=== PATIENT | female | born 1925 | race Caucasian/White ===

== ENCOUNTER 2017-04-03 20:24 | Inpatient (IN) | payer MEDICARE ==
[2017-04-03] MEDS ORDERED: Midazolam HCl 2 mg/2 ml Vial ONE (20:42)
[2017-04-03] MEDS ORDERED: Nitroglycerin 0.4 MG TAB (25 Tab Bottle) ONE (20:46)
[2017-04-03] MEDS ORDERED: Nitroglycerin 2% Ointment 1 INCH/1 GM Packet ONE (20:46)
[2017-04-03] MEDS ORDERED: Furosemide 40 MG/4 ML VIAL ONE (20:53)
[2017-04-03 20:54] LABS: Oxyhemoglobin 93.1 % (94.0-97.0); Sodium 136 mmol/L (135-148)
[2017-04-03 20:56] LABS: Mode BIPAP; Modified Allen's Test POSITIVE; Pressure Support 15 cmH2O; Vent NO
[2017-04-03 20:57] LABS: Digoxin Less than 0.15 ng/mL (0.8-2.0)
[2017-04-03 20:58] LABS: Bilirubin Negative (Negative); Blood, Urine Negative (Negative); Glucose, Urine (Dipstick) Negative (Negative); Ketone, Urine Negative (Negative); Nitrite Negative (Negative); Protein, Urine (Dipstick) 30 mg/dL (Neg-Trace)
[2017-04-03] MEDS ORDERED: Acetaminophen 650 MG Suppository ONE (20:58)
--- NOTE | 2017-04-03 20:58 | RAD ---
PORTABLE CHEST ONE VIEW: 04/03/17 at 8:01 p.m. HISTORY: Dyspnea and chest pain. FINDINGS: Comparison is made with exam of 03/09/17. The heart size is borderline. There is pulmonary vascular congestion. No lobar consolidation, pneumo thorax or large effusion is seen. Small effusions may be present. IMPRESSION: Mild CHF. POS: [facility]
[2017-04-03 21:00] LABS: Bacteria/HPF None Seen HPF (None Seen); Hyaline Casts/LPF 0-3 HYALINE CAST LPF (0-3 Hyaline); RBC/HPF 0-3 HPF (0-3); Squamous Epithelial 0-3 HPF (0-3); WBC/HPF None Seen HPF (0-3)
[2017-04-03 21:01] LABS: ALT (SGPT) 13 U/L (8-55); AST (SGOT) 31 U/L (5-34); Alkaline Phosphatase 118 U/L (40-150); Anion Gap 22 mmol/L (10-20); BUN (Urea Nitrogen) 20 mg/dL (9.8-20.1); CK (CPK) 65 U/L (29-168); Calc. Creatinine Clearance 0 mL/min (70-130); Calcium 9.3 mg/dL (7.8-10.44); Carbon Dioxide 14 mmol/L (23-31); Chloride 105 mmol/L (98-107); Estimated GFR-MDRD 39; Globulin 3.2 g/dL (2.4-3.5); Lipase 76 U/L (8-78); Protein, Total 7.7 g/dL (6.0-8.3)
[2017-04-03 21:02] LABS: Troponin I 0.012 ng/mL (< 0.028)
[2017-04-03 21:11] LABS: Renal Epithelial 0-3 HPF (0-3)
[2017-04-03 21:15] LABS: Band 1 % (5-11); Hematocrit 41.6 % (36.0-47.0); Mean Platelet Volume 6.9 fL (7.4-10.4); Neutrophil 49 % (42-75); Red Blood Cell (RBC) Count 3.77 mill/uL (4.20-5.40); White Blood Cell (WBC) Count 22.3 thou/uL (4.8-10.8)
[2017-04-03 21:24] LABS: Lactic Acid - Sepsis 4.3 mmol/L (0.5-2.2)
[2017-04-03] MEDS ORDERED: Sodium Chloride 0.9% 100 ML ONE (22:09)
[2017-04-03] MEDS ORDERED: Piperacillin/Tazobactam 4.5 GM VIAL ONE (22:09)
[2017-04-04] MEDS ORDERED: Artificial Tears 18 DROP/0.9 ML EA EYE PRN (00:16)
[2017-04-04] MEDS ORDERED: Eucerin (Mineral Oil/Petrolatum,White) 30 gm Jar TOP PRN (00:16)
[2017-04-04] MEDS ORDERED: Ondansetron HCl/PF 4 MG/2 ML Vial IVP PRN (00:16)
[2017-04-04] MEDS ORDERED: Milk Of Magnesia 30 ML UDCUP PO PRN (00:16)
[2017-04-04] MEDS ORDERED: Ondansetron ODT 4 MG TAB PO PRN (00:16)
[2017-04-04] MEDS ORDERED: Acetaminophen 325 MG TAB PO PRN (00:16)
[2017-04-04] MEDS ORDERED: HYDROcodone/Acetaminophen 5/325 mg Tablet PO PRN (00:16)
[2017-04-04] MEDS ORDERED: Sodium Chloride 0.65% Nasal 44 ML BOT EA NARE PRN (00:16)
[2017-04-04] MEDS ORDERED: Mag-Al 1200 mg/1200 mg/30 ML UDCUP PO PRN (00:16)
[2017-04-04] MEDS ORDERED: Loratadine 10 MG TAB PO PRN (00:16)
[2017-04-04] MEDS ORDERED: Diabetic Tussin 200 MG/10 ML UDCUP PO PRN (00:16)
[2017-04-04] MEDS ORDERED: Loperamide HCl 2 MG CAP PO PRN (00:16)
[2017-04-04] MEDS ORDERED: Senokot 8.6 MG TAB PO PRN (00:16)
--- NOTE | 2017-04-04 00:47 | HP ---
PRIMARY CARE PHYSICIAN: Dr. Morgan. REASON FOR ADMISSION: Acute respiratory failure, sepsis. HISTORY OF PRESENT ILLNESS: An 89-year-old female who has chronic diastolic heart failure and parox ysmal atrial fibrillation who came to the emergency room with complaint of shortness of breath. The patient lives at [facility]. This evening, the patient was complain ing of shortness of breath. She was not able to breathe and that is why she called her granddalaurene r who advised to call 911. Subsequently, the patient was brought to the emergency room by third hand s. When this patient came to the ER, at that time, the patient was kept on the CPAP by paramedics. She was appeared in respiratory distress. She was tachypneic, hypertensive, and hypoxic. Subsequently in the emergency room, patient was kept on BiPAP. She was also found with a temperature maximum 10 2.6 in the emergency room. The patient had blood culture and urine culture done and she was given e mpiric vancomycin and Zosyn. Her routine blood test also showed leukocytosis with bandemia. She al so had lactic acidosis. The patient was having vague chest discomfort because of difficulty breathing. She denies any flu-l pamela illness. She denies any urinary tract infection symptoms. She denies any constipation, diarrhe a, melena or hematochezia. On room air, her saturation was 86% and with CPAP. Her saturation improved to 96%, but it was decli nichol to 85% and that is why she was kept on BiPAP. Initially, emergency room physician suspected co ngestive heart failure and that is why she kept nitropatch with that her blood pressure dropped and nitropatch was discontinued. The patient was also having diffuse rales all over her chest when she arrived to the ER, her chest x-ray reported as mild CHF. REVIEW OF SYSTEMS: The following complete review of systems was negative, unless otherwise mentione d in the HPI or below: Constitutional: Weight loss or gain, ability to conduct usual activities. Skin: Rash, itching. Eyes: Double vision, pain. ENT/Mouth: Nose bleeding, neck stiffness, pain, tenderness. Cardiovascular: Palpitations, dyspnea on exertion, orthopnea. Respiratory: Shortness of breath, wheezing, cough, hemoptysis, fever or night sweats. Gastrointestinal: Poor appetite, abdominal pain, heartburn, nausea, vomiting, constipation, or diar angelina. Genitourinary: Urgency, frequency, dysuria, nocturia. Musculoskeletal: Pain, swelling. Neurologic/Psychiatric: Anxiety, depression. Allergy/Immunologic: Skin rash, bleeding tendency. Please see my HPI for pertinent positives and negatives. All other review of system reviewed and ne gative except as mentioned in the HPI. PAST MEDICAL HISTORY: Chronic pain disorder, hypertension, dyslipidemia, paroxysmal atrial fibrilla tion, chronic diastolic heart failure, hypothyroidism, Sjogren's syndrome, history of TIA, periphera l neuropathy, diverticulosis. PAST PSYCHIATRIC HISTORY: Anxiety and depression. PAST SURGICAL HISTORY: Cholecystectomy, bilateral knee replacement, oophorectomy, cardiac catheteri zation which showed normal coronaries. ALLERGIES: The patient is allergic to TETANUS TOXOID. SOCIAL HISTORY: The patient lives at [facility]. She is a former smoke r. She is quit smoking in 1972. She denies any alcohol or illicit drug abuse. FAMILY HISTORY: The patient denies any premature coronary artery disease, stroke or cancer. EMERGENCY ROOM COURSE: The patient is given IV fluids 500 mL, vancomycin 1 gram, Zosyn 4.5 gram, Ty lenol 650 mg, Lasix 40 mg, nitroglycerin 0.4 mg sublingual and nitropatch was applied. The patient was also given Versed 2 mg. CURRENT HOME MEDICATIONS: Lopid 600 mg twice daily, Synthroid 125 mcg p.o. daily, losartan 50 mg tw ice daily, Lyrica 100 mg twice daily, Mcrae Helena 5/325 one tablet as needed, digoxin 125 mcg p.o. daily, Cymbalta 30 mg p.o. daily, Myrbetriq 25 mg p.o. daily, cetirizine 5 mg p.o. daily. CODE STATUS: I spoke with the patient and patient's daughter as well as granddaughter who were pres ent at bedside in the emergency room and confirmed that patient does not want any kind of heroic eli sures including intubation, CPR, even one time, she does not want to try in case of cardiopulmonary arrest. PHYSICAL EXAMINATION: VITAL SIGNS: Initially, blood pressure 183/165; currently, blood pressure 98/57. Initially, pulse 93; currently, pulse 72, irregular. Initially, respiratory rate 32; and currently, 22 on BiPAP. Sh e had temperature maximum 102.6, saturation 97% on BiPAP, weight 81.7 kilograms. GENERAL: The patient is currently in mild respiratory distress. HEENT: Head normocephalic. The patient does have old bruising to left side of face, which was rela jesse with fall, which was about 1 week ago. Eyes: Pupils round, reactive to light. Extraocular mus hailey intact. ENT: Oropharynx within normal limits. Moist mucous membranes. No oral lesions. No p haryngeal erythema, no exudates. NECK: Supple, no JVD, no thyromegaly, no carotid bruit. LUNGS: Bilateral few scattered rales noted. No wheezing, no rhonchi, currently on BiPAP, comfortab le. CARDIAC: S1, S2 irregular. Systolic murmur present, parasternal. No gallop, no rub. ABDOMEN: Soft, bowel sounds present, nontender, nondistended. No organomegaly, no mass, no suprapu bic tenderness. BACK EXAMINATION: Unremarkable, no CVA tenderness. EXTREMITIES: Upper extremities: Passive movement of all joints are normal. Lower extremities: No edema. Good peripheral pulsation. SKIN: No skin rash. HEMATOLOGICAL SYSTEM: No lymphadenopathy. PSYCHIATRIC: Normal affect. NEUROLOGIC: Nonfocal examination. She is moving all four limbs, plantar bilateral flexor. SIGNIFICANT LABS: 1. EKG showing atrial fibrillation with controlled ventricular response, complete right bundle bran ch block pattern. 2. Chest x-ray based on my review, cardiomegaly, pulmonary vascular congestion, mild congestive hea rt failure. 3. CBC: WBC 22.3, hemoglobin 13.6, MCV 110, platelets 425, bandemia. ABG: PH of 7.26, bicarbonat e of 17.2, CO2 of 39.1, O2 of 87.2. 4. BMP: Sodium 137, potassium 4.4, chloride 105, carbon dioxide 14, anion gap 22, BUN 20, creatini ne 1.29, glucose 253, calcium 9.3. Lactic acid 4.3. 5. LFT: AST 31, ALT 13, alkaline phosphatase 118, albumin 4.5. CK 65, CK-MB 1.7, troponin I 0.012 . BNP 914.6. Urinalysis: Leukocyte esterase, digoxin less than 0.15. ASSESSMENT AND PLAN/IMPRESSION: 1. Acute respiratory failure with hypoxia. The patient was saturating in the emergency room 85% on room air. She was kept on CPAP, but with that she was not maintaining saturation and required BiPA P. At this point, patient and patient's family member does not want intubation, they only wanted to continue conservatively with noninvasive ventilator with BiPAP if needed. At this point, the patie nt has significant improvement with BiPAP therapy in the emergency room. We will try to wean off fr om BiPAP in the IMCU. As per protocol, the patient will be admitted to IMCU. Pulmonary will be con sulted. We will monitor her oxygen saturation. 2. Acute encephalopathy. The patient was confused in the emergency room, likely related with hypox ia and sepsis. Normally, the patient is sharp and oriented x3 at home and she is able to do all rou beatriz activities by herself. We will monitor clinically in ICU. She does not have any focal neurolo gical deficit. 3. Sepsis with acute organ dysfunction (the patient has respiratory failure, encephalopathy, and le ukocytosis with bandemia and lactic acidosis). Source of infection is unclear, but suspected atypic al pneumonia, viral infection versus urinary tract infection. We will check virus panel, blood cult ure, urine culture already obtained in emergency room. We will continue broad spectrum antibiotic t herapy with vancomycin and Zosyn. We will follow up on culture result and narrow down antibiotic sp ectrum. I will also check stool for Clostridium difficile to rule out Clostridium difficile infecti on. 4. Lactic acidosis, likely due to underlying sepsis and hypoxia. The patient is already on broad s pectrum antibiotic therapy. We will repeat lactic acid tomorrow. 5. Acute on chronic diastolic congestive heart failure that is also possible given her elevated BNP and diastolic dysfunction and paroxysmal atrial fibrillation. At this point, because of low blood pressure, we will avoid Lasix therapy and will monitor. 6. Atrial fibrillation, paroxysmal. We will continue digoxin 250 mcg p.o. daily given low digoxin level. We will monitor on telemetry floor. We will also continue amiodarone 200 mg p.o. daily. 7. Dyslipidemia. We will continue Lopid 600 mg twice daily. 8. Hypothyroidism. We will continue Synthroid 125 mcg p.o. daily. 9. Anxiety and depression. We will continue Cymbalta 30 mg p.o. daily. 10. Chronic pain disorder. We will continue Mcrae Helena on a p.r.n. basis. 11. Chronic anticoagulation therapy. We will continue Eliquis 5 mg p.o. b.i.d. 12. Hypertension. We will continue losartan 50 mg p.o. b.i.d. when blood pressure permits. 13. Peripheral neuropathy. We will continue Lyrica 100 mg twice daily. 14. Deep venous thrombosis prophylaxis. The patient is already on Eliquis therapy. 15. Gastrointestinal prophylaxis. Protonix 40 mg p.o. daily. CODE STATUS: Discussed with the patient and patient's family member, patient is DNR. The patient's daughter is surrogate decision maker. Disposition plan based on clinical course. We are expecting patient's stay in the hospital more guy n 2 midnights. Plan of care discussed with the patient in detail.
[2017-04-04 01:14] VITALS: BMI 29.1
[2017-04-04] MEDS: Piperacillin/Tazobactam 3.375 GM in Sodium Chloride 0.9% 100 ML IVPB SCH ×2 (04:36→08:37)
[2017-04-04] MEDS: Levothyroxine Sodium 125 MCG TAB PO SCH (05:41)
[2017-04-04 05:51] LABS: #Eosinphils 0.1 thou/uL (0.0-0.7); #Lymphocytes 1.9 thou/uL (1.20-3.40); #Monocytes 1.3 thou/uL (0.11-0.59); #Neutrophils 5.8 thou/uL (1.40-6.50); %Basophils 0.2 % (0.0-1.0); %Eosinophils 0.6 % (0.0-10.0); %Lymphocytes 20.9 % (21.0-51.0); %Monocytes 14.6 % (0.0-10.0); Hematocrit 34.1 % (36.0-47.0); Red Blood Cell (RBC) Count 3.16 mill/uL (4.20-5.40); White Blood Cell (WBC) Count 9.1 thou/uL (4.8-10.8)
[2017-04-04 06:08] LABS: Hemoglobin A1c 4.9 % (4.0-6.0)
[2017-04-04 06:14] LABS: ALT (SGPT) 10 U/L (8-55); AST (SGOT) 19 U/L (5-34); Alkaline Phosphatase 72 U/L (40-150); Anion Gap 10 mmol/L (10-20); BUN (Urea Nitrogen) 21 mg/dL (9.8-20.1); Calc. Creatinine Clearance 44 mL/min (70-130); Calcium 8.9 mg/dL (7.8-10.44); Carbon Dioxide 24 mmol/L (23-31); Chloride 108 mmol/L (98-107); Estimated GFR-MDRD 46; Globulin 2.5 g/dL (2.4-3.5); Protein, Total 6.1 g/dL (6.0-8.3); Troponin I 0.307 ng/mL (< 0.028)
--- NOTE | 2017-04-04 07:50 | ADD-HP ---
ADDENDUM 1. Moderate tricuspid regurgitation and mitral regurgitation based on previous echocardiography. 2. Necrocytosis. We will check B12 and folate level and continue with folic acid and vitamin B12 t herapy while in hospital. 3. Chronic kidney disease stage 3. We will monitor renal function and will avoid nephrotoxic agent s. 4. Elevated blood sugar level. I will check hemoglobin A1c to rule out any underlying diabetes.
[2017-04-04] MEDS: Pregabalin 50 MG CAP PO SCH ×3 (08:28→21:05)
[2017-04-04] MEDS: Cyanocobalamin (Vitamin B-12) 1,000 MCG TAB PO SCH (08:28)
[2017-04-04] MEDS: Gemfibrozil 600 MG TAB PO SCH ×2 (08:28→15:41)
[2017-04-04] MEDS: Saccharomyces boulardii 250 MG CAP PO SCH (08:29)
[2017-04-04] MEDS: Folic Acid 1 MG TAB PO SCH (08:29)
[2017-04-04] MEDS: Apixaban 5 MG TAB PO SCH ×2 (08:29→21:05)
[2017-04-04] MEDS ORDERED: Digoxin 0.25 MG TAB PO SCH (09:00)
--- NOTE | 2017-04-04 15:13 | PDOC.PN ---
- Subjective Encounter Start Date: 04/04/17 Encounter Start Time: 14:55 Subjective: f/u for acute respiratory failure requiring BiPAP initially. Off NIMV on -: O2 via NC. Feels fine today and denies any fever or chills. Tx with IV -: abx after concern for sepsis of pulmonary source. - Objective Resuscitation Status: Resuscitation Status DNR:Do Not Resuscitate MAR Reviewed: Yes Vital Signs & Weight: Vital Signs (12 hours) Temp Pulse Resp BP Pulse Ox 04/04/17 12:00 97.8 F 65 18 110/51 L 100 04/04/17 08:30 71 04/04/17 08:00 97.8 F 71 22 H 95 04/04/17 07:54 97.2 F L 71 22 H 111/53 L 97 04/04/17 06:35 96 04/04/17 04:00 98.6 F 73 18 109/50 L 95 I&O: 04/03/17 04/04/17 04/05/17 06:59 06:59 06:59 Intake Total 150 Output Total 750 Balance -600 Result Diagrams: 04/04/17 04:49 04/04/17 04:49 Additional Labs: Microbiology 04/04/17 02:45 Nasopharyngeal swab Respiratory Virus Panel (PCR) ([facility]) - Final 04/03/17 20:55 Venous blood - Right Arm Blood Culture - Preliminary Specimen has been received and culture in progress. No Growth to date. 04/03/17 20:48 Urine castillo catheter Urine Culture - Preliminary NO GROWTH AT 24 HOURS 04/03/17 20:34 Venous blood - Left Hand Blood Culture - Preliminary Specimen has been received and culture in progress. No Growth to date. Radiology Reviewed by me: Yes (PCXR - minimal edema; C 03/05/17 - normal coronary anatomy) EKG Reviewed by me: Yes (Tele - A-fib in 60's) Phys Exam - Physical Examination Constitutional: NAD HEENT: PERRLA, oral pharynx no lesions Neck: no JVD, supple Respiratory: no wheezing, clear to auscultation bilateral Cardiovascular: irregular Gastrointestinal: soft, non-tender, no distention, positive bowel sounds Musculoskeletal: no edema, pulses present Neurological: normal sensation, moves all 4 limbs Psychiatric: A&O x 3 Deviation from normal: ecchymosis of face, nose and periorbital region, old Skin: normal turgor, cap refill <2 seconds Dx/Plan (1) Acute on chronic diastolic (congestive) heart failure Code(s): I50.33 - ACUTE ON CHRONIC DIASTOLIC (CONGESTIVE) HEART FAILURE Status : Acute Comment: EF 50-55%, Grade III diastolic dysfunction, mild edema on CXR initially, resolved (2) Acute on chronic respiratory failure with hypoxia and hypercapnia Code(s): J96.21 - ACUTE AND CHRONIC RESPIRATORY FAILURE WITH HYPOXIA; J96.22 - ACUTE AND CHRONIC RESPIRATORY FAILURE WITH HYPERCAPNIA Status: Acute Comment : Unclear etiology, resolved and off BiPAP, continue O2 via NC (3) Atrial fibrillation Code(s): I48.91 - UNSPECIFIED ATRIAL FIBRILLATION Status: Chronic Qualifiers: Atrial fibrillation type: persistent Qualified Code(s): I48.1 - Persistent atrial fibrillation Comment: Rate controlled, Continue Eliquis 5mg BID, Contiue Amiodarone (4) CKD (chronic kidney disease) stage 3, GFR 30-59 ml/min Status: Chronic Comment: Stable, baseline (5) Hypertension Code(s): I10 - ESSENTIAL (PRIMARY) HYPERTENSION Status: Chronic Qualifiers: Hypertension type: essential hypertension Qualified Code(s): I10 - Essential (primary) hypertension Comment: Stable, resume home BP regimen - Plan plan discussed w/ family, continue antibiotics, respiratory therapy, out of bed/ ambulate, DVT proph w/SCDs Stable currently -: Continue Augementin -: Await final Blood cx results -: Continue Florastor 250mg daily -: AM lab: BMP * .
--- NOTE | 2017-04-04 17:25 | CON ---
DATE OF CONSULTATION: 04/04/2017 HISTORY OF PRESENT ILLNESS: Ms. Hernandez is a very pleasant 89-year-old female. I cared for her husb and in the past. She presented with complaints of shortness of breath. She has great historian and says that her dry weight is 175 pounds. She weighs herself every day and says she is actually 2-1/2 pounds below, wh ich she considers to be her dry weight. She presented with complaints of shortness of breath and she says she feels 100% better at this time . She was noninvasively ventilated transiently. She was noted to be febrile. She has been started on antimicrobial therapy. She says she felt fine up until the shortness of raegan ath started yesterday. She is followed primarily at [facility]. Her outside parts sales is over there, but she has been hosp italized here in the past. She has been seen by Dr. Chau here in the past. She actually saw her in the hospital in January of last year. She presented that admission was also placed on BiPAP and then had to be intubated. PAST MEDICAL HISTORY: Remarkable for; 1. Atrial fibrillation. 2. Chronic pain. 3. Hypertension. 4. Lipid disorder. 5. Sjogren's. 6. Hypothyroidism. 7. TIA in the past. 8. Diverticulosis. 9. Peripheral neuropathy. 10. Cholecystectomy. 11. History of bilateral knee replacements. 12. History of an oophorectomy. MEDICATIONS: Have been reviewed. SOCIAL HISTORY: She is a nonsmoker and nondrinker. ALLERGIES: She reports allergies to TETANUS. REVIEW OF SYSTEMS: Otherwise negative. She says she feels back to normal. PHYSICAL EXAMINATION: VITAL SIGNS: She is afebrile, heart rate 65, respiratory rate is 18, oximetry is 100% on 2 liters, blood pressure 110/51. Intake and output was negative 600. HEENT: Pupils are equal. Sclerae is anicteric. NECK: Supple, no lymphadenopathy. LUNGS: Clear now. HEART: Regular rhythm. ABDOMEN: Soft and nontender. EXTREMITIES: Without asymmetry. LABORATORY AND X-RAY FINDINGS: Chest radiograph showed mild pulmonary edema compared to 03/09/2017 film. White count 9.1, hemoglobin 11.1, platelets 273, her white count yesterday was 22. She had n o manual differential, so a band count is not available. Sodium 138, potassium 3.9, chloride 108, b icarbonate 24, BUN 21, creatinine 1.11. A pH 7.26, CO2 of 39, pO2 of 87. IMPRESSION AND PLAN: Tachypnea, respiratory distress with associated metabolic acidosis of unclear etiology, combined with pulmonary edema. She is clinically improved dramatically. Cultures done ye sterday are negative so far. She can be transferred out of the Critical Care Unit in my opinion to a telemetry bed. Dr. Isac massey ppears to be the outside parts sales she sees when she is here, so he should be consulted.
[2017-04-04] MEDS ORDERED: Vancomycin HCl 1 GM in Premix Bag 1 BAG IVPB SCH (21:00)
[2017-04-04] MEDS: Amoxicillin/Potassium Clav 875 MG TAB PO SCH (21:05)
[2017-04-05 06:12] LABS: Anion Gap 12 mmol/L (10-20); BUN (Urea Nitrogen) 16 mg/dL (9.8-20.1); Calc. Creatinine Clearance 44 mL/min (70-130); Calcium 9.8 mg/dL (7.8-10.44); Carbon Dioxide 27 mmol/L (23-31); Chloride 109 mmol/L (98-107); Estimated GFR-MDRD 45
[2017-04-05] MEDS: Levothyroxine Sodium 125 MCG TAB PO SCH (06:14)
[2017-04-05] MEDS: Gemfibrozil 600 MG TAB PO SCH ×2 (08:32→15:56)
[2017-04-05] MEDS: Apixaban 5 MG TAB PO SCH ×2 (09:02→22:20)
[2017-04-05] MEDS: Amoxicillin/Potassium Clav 875 MG TAB PO SCH ×2 (09:02→22:20)
[2017-04-05] MEDS: Saccharomyces boulardii 250 MG CAP PO SCH (09:03)
[2017-04-05] MEDS: Pregabalin 50 MG CAP PO SCH ×3 (09:03→22:21)
[2017-04-05] MEDS: Cyanocobalamin (Vitamin B-12) 1,000 MCG TAB PO SCH (09:03)
[2017-04-05] MEDS: Folic Acid 1 MG TAB PO SCH (09:03)
--- NOTE | 2017-04-05 11:26 | PRG ---
DATE OF SERVICE: 04/05/2017 Ms. Hernandez is in no distress. She says she is feeling well. PHYSICAL EXAMINATION: VITAL SIGNS: She is afebrile, heart rate is 85, respiratory rate 16, oximetry is 98 at 1.5 liters, blood pressure 172/78. LUNGS: Lungs are clear today. HEART: Regular rhythm. IMPRESSION: Congestive heart failure. She is actually below her dry weight by her history and she actually quite an accurate historian. Given she has a modest elevation of her blood pressure this m orning, it may be that her blood pressure was running higher than normal at home. Her cultures all remain negative. Will ask Dr. Chau to see her since he has seen her in the past. I doubt she is septic. I believe the majority of her presenting complaint is related to congestive heart failure.
--- NOTE | 2017-04-05 14:43 | PDOC.PN ---
- Subjective Encounter Start Date: 04/05/17 Encounter Start Time: 14:35 Subjective: f/u for acute resp failure initially on BiPAP now on 1.5L/min O2 NC. Feels -: much better and no new complaints. - Objective Resuscitation Status: Resuscitation Status DNR:Do Not Resuscitate MAR Reviewed: Yes Vital Signs & Weight: Vital Signs (12 hours) Temp Pulse Resp BP Pulse Ox 04/05/17 12:13 97.9 F 78 17 138/61 98 04/05/17 09:10 97.9 F 04/05/17 08:00 97.9 F 85 16 98 04/05/17 07:55 97.8 F 85 17 172/78 H 98 04/05/17 04:00 78 18 149/67 H 97 I&O: 04/04/17 04/05/17 04/06/17 06:59 06:59 06:59 Intake Total 150 720 Output Total 750 1150 Balance -600 -430 Result Diagrams: 04/04/17 04:49 04/05/17 05:20 Additional Labs: Microbiology 04/04/17 02:45 Nasopharyngeal swab Respiratory Virus Panel (PCR) ([facility]) - Final 04/03/17 20:48 Urine castillo catheter Urine Culture - Final NO GROWTH AT 36 HOURS 02/25/17 11:45 Urine castillo catheter Urine Culture - Final NO GROWTH AT 48 HOURS 04/03/17 20:55 Venous blood - Right Arm Blood Culture - Preliminary Specimen has been received and culture in progress. No Growth to date. 04/03/17 20:55 Venous blood - Right Arm Blood Culture - Preliminary NO GROWTH AT 48 HOURS 04/03/17 20:48 Urine castillo catheter Urine Culture - Preliminary NO GROWTH AT 24 HOURS 04/03/17 20:34 Venous blood - Left Hand Blood Culture - Preliminary Specimen has been received and culture in progress. No Growth to date. 04/03/17 20:34 Venous blood - Left Hand Blood Culture - Preliminary NO GROWTH AT 48 HOURS 02/25/17 06:38 Venous blood - Right Hand Blood Culture - Preliminary Specimen has been received and culture in progress. No Growth to date. 02/25/17 06:38 Venous blood - Left Hand Blood Culture - Preliminary Specimen has been received and culture in progress. No Growth to date. Laboratory Tests 02/25/17 02/26/17 02/27/17 06:38 03:44 04:15 WBC 17.3 H 14.2 H Neutrophils % 90.0 H Hemoglobin A1c Phosphorus 2.5 Magnesium 2.1 Vitamin B12 Folate Vancomycin Trough 02/27/17 02/27/17 04/04/17 04:15 04:15 04:49 WBC Neutrophils % 91.6 H Hemoglobin A1c Phosphorus Magnesium Vitamin B12 527 Folate 15.10 Vancomycin Trough 10.3 04/04/17 04:49 WBC Neutrophils % Hemoglobin A1c 4.9 Phosphorus Magnesium Vitamin B12 Folate Vancomycin Trough EKG Reviewed by me: Yes (Tele - A-fib in 70's) Phys Exam - Physical Examination Constitutional: NAD periorbital and facial ecchymosis old HEENT: PERRLA Neck: no JVD, supple Respiratory: no wheezing, clear to auscultation bilateral Cardiovascular: irregular Gastrointestinal: soft, non-tender, no distention, positive bowel sounds Musculoskeletal: no edema, pulses present Neurological: normal sensation, moves all 4 limbs Psychiatric: A&O x 3 Skin: normal turgor, cap refill <2 seconds Dx/Plan (1) Acute on chronic diastolic (congestive) heart failure Code(s): I50.33 - ACUTE ON CHRONIC DIASTOLIC (CONGESTIVE) HEART FAILURE Status : Acute Comment: EF 50-55%, Grade III diastolic dysfunction, mild edema on CXR initially, resolved (2) Acute on chronic respiratory failure with hypoxia and hypercapnia Code(s): J96.21 - ACUTE AND CHRONIC RESPIRATORY FAILURE WITH HYPOXIA; J96.22 - ACUTE AND CHRONIC RESPIRATORY FAILURE WITH HYPERCAPNIA Status: Acute Comment : Unclear etiology likely due to #1, resolved and off BiPAP, continue O2 via NC (3) Atrial fibrillation Code(s): I48.91 - UNSPECIFIED ATRIAL FIBRILLATION Status: Chronic Qualifiers: Atrial fibrillation type: persistent Qualified Code(s): I48.1 - Persistent atrial fibrillation Comment: Rate controlled, Continue Eliquis 5mg BID, Contiue Amiodarone (4) CKD (chronic kidney disease) stage 3, GFR 30-59 ml/min Status: Chronic Comment: Stable, baseline (5) Hypertension Code(s): I10 - ESSENTIAL (PRIMARY) HYPERTENSION Status: Chronic Qualifiers: Hypertension type: essential hypertension Qualified Code(s): I10 - Essential (primary) hypertension Comment: Stable, resume home BP regimen - Plan plan discussed w/ family, continue antibiotics, respiratory therapy, out of bed/ ambulate, DVT proph w/SCDs Stable currently -: Suspected respiratory failure due to cardiac source as infection appears -: less likely, consult Cardiology service, consider event monitor -: Continue Augmentin 875mg BID -: Continue Florastor 250mg daily * Likely home in 24-48h
--- NOTE | 2017-04-05 21:39 | CON ---
DATE OF CONSULTATION: 04/05/2017 REASON FOR CONSULTATION: Shortness of breath. HISTORY OF PRESENT ILLNESS: Ms. Hernandez is a very pleasant 89-year-old white female who comes to the hospital for shortness of breath. She had an admission a few months back for chronic shortness of breath and a sudden increase in her breathing. At that time, she underwent right and left heart cat heterization. She was found to have elevated left-sided pressures. Diagnosed with chronic diastoli c dysfunction, coronary anatomy was normal with no significant coronary artery disease. She had nor mal right-sided pressures as well. She comes in as she started complaining of increased shortness o f breath the night before admission. She called her granddaughter who started get her way to her ho use, but she started to just call 911 as her breathing was much worse. On arrival, EMS saw that she was in respiratory distress and placed on CPAP. She was brought into the hospital and was found to have a temperature of 102.6 on empiric antibiotics and admitted for further care. She eventually had to go up to BiPAP. She got diuresed and her blood pressure was elevated at first, measured at 185/101, at one point 190/90, 183/125. Eventually, blood pressure came down to 125/107 after nitrop atch was placed. She eventually actually got a little hypotensive down to 92/52 and nitropatch was discontinued and her blood pressure went back to normal. She was diuresed with Lasix and within a f ew hours, she was doing much better with respiration. She weighs herself daily and apparently she w as about 2-3 pounds under her dry weight, but that was the morning of and this happened in the eveni ng of the . Currently, she denies any chest pain, tightness, pressure, her shortness of breath i s back to her baseline. She denies any cough, fevers, diarrhea. PAST MEDICAL HISTORY: 1. Chronic pains disorder. 2. Hypertension. 3. Hyperlipidemia. 4. Paroxysmal atrial fibrillation. 5. Chronic diastolic heart failure. 6. Hypothyroidism. 7. Sjogren's syndrome. 8. TIA's in the past. 9. Peripheral neuropathy. 10. Diverticulosis. PSYCHIATRIC HISTORY: Anxiety, depression. PAST SURGICAL HISTORY: 1. Cholecystectomy. 2. Bilateral knee replacement. 3. Oophorectomy. 4. Cardiac catheterization as above. OUTPATIENT MEDICATIONS: 1. Lopid 600 mg twice a day. 2. Synthroid 125 mcg daily. 3. Losartan 50 mg twice a day. 4. Lyrica 100 mg twice a day. 5. [place] p.r.n. pain. 6. Digoxin 125 mcg a day. 7. Cymbalta 30 mg a day. 8. Myrbetriq 25 mg a day. 9. Cetirizine 5 mg a day. 10. Aspirin 81 mg a day. ALLERGIES: TETANUS TOXOID. SOCIAL HISTORY: Lives in the [facility], former smoker, quit in 1972. No alcohol or drugs. FAMILY HISTORY: Noncontributory. PHYSICAL EXAMINATION: VITAL SIGNS: Temperature 98.3, pulse 83, respiration rate 18, satting 98% on 1.5 liters, blood pres sure 142/63. GENERAL: Awake, alert, oriented x3, in no distress. HEENT: Normocephalic, atraumatic. NECK: Supple. LUNGS: Clear. CARDIOVASCULAR: S1, S2, no S3 or S4, no murmurs or rubs. ABDOMEN: Soft, positive bowel sounds. EXTREMITIES: No edema. SKIN: Warm and dry. LABORATORY DATA AND IMAGING: Reviewed. On admission, her white count was 22,000 down to 9,100 the day after, her hemoglobin was fine, platelet count 425. Chemistries are reviewed. Creatinine 1.29 on admission down to 1.1 now. Lactic acid was 4.3 on admission down to 1, hemoglobin A1c is 4.9. T roponin was normal at first and then up to 0.3 with normal CK-MB, BNP was 914, albumin of 4.5. Lipa se of 76, normal B12 and folate. UA was unremarkable and a digoxin level was less than assay limit. Chest x-ray showed mild heart failure. EKG show atrial fibrillation, rate controlled, no ischemic changes. ASSESSMENT AND PLAN: 1. Acute on chronic diastolic heart failure. 2. Flash pulmonary edema. 3. Hypertensive emergency. 4. Paroxysmal atrial fibrillation. 5. Recent fall 2 weeks ago. 6. Fevers. 7. Elevated lactic acid. 8. Possible upper respiratory infection. 9. Acute respiratory insufficiency, resolved. PLAN: 1. Most likely her sudden increase in shortness of breath was led her to flash pulmonary edema from her diastolic dysfunction on top of her atrial fibrillation. That would explain both her rapid dec ompensation as well as her rapid response to blood pressure control and diuresis. She is very close now to her baseline. She should be able to be discharged home probably tomorrow if nothing else is planned. We will recommend that she be started on hydralazine 10 mg 3 times a day as needed for bl ood pressure above 160/100. Also, if she becomes short of breath during this time, she can take a d ose of Lasix which is also going to be taken home p.r.n. She will follow up with us in clinic in 2 weeks with blood pressure log, heart rate and weights. 2. Atrial fibrillation. Currently rate controlled on current regimen. We will add aspirin to her regimen for stroke prophylaxis, currently not a good candidate for full anticoagulation given her fr equent falls. She had a fall just a week or two ago and she has a lot of ecchymosis around her face from this, so she did hit her head on the pavement. We will discuss again in the next few weeks ab out stroke prophylaxis. Thank you for letting us participate in the care of your patient. We will follow.
[2017-04-06] MEDS: Levothyroxine Sodium 125 MCG TAB PO SCH (06:07)
[2017-04-06] MEDS: Gemfibrozil 600 MG TAB PO SCH (08:13)
[2017-04-06] MEDS: Saccharomyces boulardii 250 MG CAP PO SCH (09:36)
[2017-04-06] MEDS: Apixaban 5 MG TAB PO SCH (09:36)
[2017-04-06] MEDS: Pregabalin 50 MG CAP PO SCH (09:36)
[2017-04-06] MEDS: Amoxicillin/Potassium Clav 875 MG TAB PO SCH (09:36)
[2017-04-06] MEDS: Cyanocobalamin (Vitamin B-12) 1,000 MCG TAB PO SCH (09:36)
[2017-04-06] MEDS: Folic Acid 1 MG TAB PO SCH (09:36)
--- NOTE | 2017-04-06 14:29 | DIS ---
DATE OF ADMISSION: 04/04/2017 DATE OF DISCHARGE: 04/06/2017 DISCHARGE DIAGNOSES: 1. Acute on chronic diastolic congestive heart failure exacerbation with ejection fraction of 50-55 %. 2. Flash pulmonary edema secondarily to #1, resolved. 3. Acute on chronic hypoxemic hypercapnic respiratory failure, resolved. 4. Chronic atrial fibrillation, rate controlled on chronic Eliquis therapy. 5. Hypertension, labile. 6. Chronic kidney disease stage 3. 7. Suspected sepsis/systemic inflammatory response syndrome ruled out. 8. Lactic acidosis, resolved. CONSULTATIONS: Dr. Chau with Cardiology service. Dr. Cintron with Pulmonology Service. PERTINENT LABORATORY AND X-RAY FINDINGS: Creatinine ranged between 1.11 to 1.29 with estimated GFR ranging between 39 to 46. Lactic acid level ranged between 1.0 to 4.3. LFTs within normal limits. BNP 915, previously noted 438 on 03/12/2017. Vitamin B12 level 527, folate 15.1. CBC showed a whi te blood cell count ranging between 9.1-22.3, hemoglobin ranged between 11.1 to 13.6. Blood culture s x2 from 04/03/2017 showed no growth at 48 hours. Urine culture dated 04/03/2017 showed no growth at 36 hours. Respiratory virus panel dated 04/04/2017 negative. Portable chest x-ray dated 017 showed mild pulmonary edema. A 2D transthoracic echocardiogram dated 02/25/2017 showed ejection fraction of 50-55%. Septal and inferior apical hypokinesis. Grade III/III diastolic dysfunction. Akinesis of the apex of the right ventricle. Moderate mitral valve regurgitation, moderate to ese re tricuspid valve regurgitation. Left heart cardiac catheterization, dated 03/05/2017 showed carter l coronary anatomy. HOSPITAL COURSE: Patient was admitted to the intermediate care unit after initially presenting with acute hypoxemic respiratory failure with initial concern for potential infectious etiology and seps is. Patient was noted with elevated lactic acid level in the 4 range placed on IV antibiotic therap y and given general sepsis protocol. The patient was also placed on BiPAP noninvasive mechanical ve ntilation due to severe respiratory distress and Lasix therapy. The patient diuresed appropriately and rapidly clinically improved with normalization of respiratory status in less than 24 hours. The patient was continued on oxygen by nasal cannula and exhibited no further evidence of clinical deco mpensation or respiratory compromise. The patient was evaluated by the Pulmonology Service with rec ommendations for general pulmonary supportive measures. The patient was transitioned to oral antibi otic therapy, but no specific evidence of infectious process was identified. The patient was evalua jesse by the Cardiology service with recommendations for tighter blood pressure control and fluid sheldon gement with Lasix. Patient likely presented with flash pulmonary edema in the context of chronic an d persistent atrial fibrillation in conjunction with diastolic congestive heart failure. Overall, p atient remained clinically stable, transitioning to the telemetry unit with telemetry monitoring vaibhav wing atrial fibrillation with controlled rate. Overall, the patient remained clinically stable thro ughout the remainder of the hospital course and ready for discharge on 04/06/2017. DISCHARGE MEDICATIONS: 1. Amiodarone 200 mg 1 tab p.o. daily. 2. Augmentin 875 mg 1 tab p.o. b.i.d. x3 days. 3. Eliquis 5 mg 1 tab p.o. b.i.d. 4. Vitamin C 500 mg p.o. daily. 5. Zyrtec 10 mg one tab p.o. daily. 6. Vitamin D3 1000 units p.o. daily. 7. Cymbalta 30 mg one tablet p.o. daily. 8. Flonase 1 spray in each naris daily. 9. Lasix 20 mg 1 tab p.o. daily. 10. Gemfibrozil 600 mg 1 tab p.o. b.i.d. 11. [place] 5/325 mg 1 tab p.o. q.6 h. p.r.n. 12. Levothyroxine 150 mcg 1 tab p.o. daily. 13. Cozaar 50 mg p.o. b.i.d. 14. Metoprolol tartrate 25 mg p.o. b.i.d. 15. Myrbetriq 25 mg p.o. daily. 16. Multivitamin 1 tab p.o. daily. 17. Lyrica 100 mg p.o. b.i.d. 18. Hydralazine 10 mg p.o. t.i.d. p.r.n. systolic blood pressure greater than 160/100. FOLLOWUP: The patient may follow up with Dr. Morgan at [facility] within 7 days. The patient will follow up with Dr. Chau with [facility] Cardiology Service within 2 weeks of discharge. CONDITION ON DISCHARGE: Fair. ACTIVITY: Ad rolf. DIET: Heart healthy. CODE STATUS: Do not resuscitate. DISPOSITION: Home on 04/06/2017. Total time preparing and coordinating discharge is 34 minutes.
[2017-04-06 14:44] VITALS: TEMP 97.9
[2017-04-06 15:20] VITALS: BP 139/59
--- NOTE | 2017-04-06 16:41 | PRG ---
DATE OF SERVICE: 04/06/2017 SUBJECTIVE: Sandra Hernandez did well overnight. Dr. Chau has made arrangements for her to see lnida maier in 2 weeks. OBJECTIVE: LUNGS: Clear today. HEART: Regular rhythm. ABDOMEN: Soft. IMPRESSION: Congestive heart failure. She is clinically stable for discharge. I do not feel that she has anything infectious that led to this decompensation. She can stop her antibiotics. I will see her as needed in the future.
== END 2017-04-06 14:30 | disposition home or self-care (01) | DRG 291 ==
LOC: ERS 20:24 → IMCU/EMU 04-04 → 2NO 04-04 18:24
PROVIDERS: ADMIT Internal Medicine; ATTEND Internal Medicine
PROC: 5A09357 Assistance with Respiratory Ventilation, Less than 24 Consecutive Hours, Continuous Positive Airway Pressure (ICD-10-PCS; principal; 2017-04-04)
DX: I13.0 Hypertensive heart and chronic kidney disease with heart failure and stage 1 through stage 4 chronic kidney disease, or unspecified chronic kidney disease (principal); G93.41 Metabolic encephalopathy; J96.21 Acute and chronic respiratory failure with hypoxia; E87.2 Acidosis; I50.33 Acute on chronic diastolic (congestive) heart failure; J96.22 Acute and chronic respiratory failure with hypercapnia; I48.1 Persistent atrial fibrillation; I16.1 Hypertensive emergency; G62.9 Polyneuropathy, unspecified; N18.3 Chronic kidney disease, stage 3 (moderate); F32.9 Major depressive disorder, single episode, unspecified; I08.1 Rheumatic disorders of both mitral and tricuspid valves; E03.9 Hypothyroidism, unspecified; E78.5 Hyperlipidemia, unspecified; F41.9 Anxiety disorder, unspecified; G89.29 Other chronic pain; Z79.01 Long term (current) use of anticoagulants; Z66 Do not resuscitate; Z86.73 Personal history of transient ischemic attack (TIA), and cerebral infarction without residual deficits
CPT/HCPCS: 36415; 51702; 71010; 80048; 80053; 80162; 81003; 81015; 82550; 82553; 82607; 82746; 82805; 83036; 83605; 83690; 83880; 84484; 85025; 87040; 87086; 87633; 93005; 93798; 94660; 94760; 96365; 96375; 99292; A4216; J1940; J2250; J2543; J3370; J7050